=== PATIENT | female | born 1995 | race Two or more races ===

== ENCOUNTER 2018-07-04 15:01 | Emergency (ER) | payer OTHER ==
[~2018-07-04] VITALS: Ht 162.6 cm; Wt 58.0 kg
[2018-07-04] MEDS ORDERED: KETOROLAC 30MG/ML VIAL IM ONE (15:45)
[2018-07-04] MEDS ORDERED: HYDROCODONE/ACETAMINOPHEN 5/325MG TABLET PO ONE (17:00)
[2018-07-04 18:14] VITALS: BP 128/72
== END 2018-07-04 18:15 | disposition home or self-care (01) ==
LOC: ER 15:01
DX: S42.001A Fracture of unspecified part of right clavicle, initial encounter for closed fracture (principal); V43.52XA Car driver injured in collision with other type car in traffic accident, initial encounter; Y93.89 Activity, other specified; Y92.488 Other paved roadways as the place of occurrence of the external cause
CPT/HCPCS: 71045; 73030; 96372; 99283; J1885; A4565